=== PATIENT | female | born 1980 | race Two or more races ===

== ENCOUNTER 2024-08-12 09:19 | Emergency (ER) | payer OTHER ==
--- NOTE | 2024-08-12 11:29 | RAD REPORT ---
EXAMINATION: CT ABDOMEN AND PELVIS WITH CONTRAST CLINICAL INDICATION: Female, 44 years old.RLQ abd pain, hx of ruptured cysts TECHNIQUE: CT abdomen and pelvis was performed, after the administration of IV contrast, as per [facility] protocol. Axial, sagittal and coronal reconstructions were obtained. One or more of the following dose reduction techniques were used: Automated exposure control, adjustment of the mA and/o r kV according to patient size, and/or iterative reconstruction. Unless otherwise specified, incidental findings do not require dedicated imaging follow-up. [id number]. COMPARISON: 11/15/2016 FINDINGS: LOWER CHEST: No acute process identified.No significant pericardial effusion. Mild circumferential th ickening of the distal esophagus which could reflect esophagitis. UPPER GI: No significant abnormality. LIVER: No significant focal abnormality. GALLBLADDER/BILE DUCTS: No biliary ductal dilatation.? PANCREAS: No mass, ductal dilation, or jono-pancreatic fluid. SPLEEN: Unremarkable. ADRENALS: No adrenal masses. KIDNEYS AND URETERS: No hydronephrosis.No suspicious renal mass. ABDOMINAL AORTA AND OTHER VESSELS: Normal caliber aorta and IVC. PERITONEUM: No abnormal free fluid. No free air. LYMPH NODES: No pathologic lymphadenopathy. ABDOMINAL WALL: Unremarkable SMALL BOWEL/COLON: Very short segment intussusception present at the jejunum as seen on image 44, ser ies 201. No upstream bowel dilatation.Normal appendix. Mild diverticulosis without diverticulitis. URINARY BLADDER: Underdistended but grossly unremarkable. REPRODUCTIVE ORGANS: No pathologic process. MUSCULOSKELETAL: No acute or suspicious osseous abnormality. ADDITIONAL FINDINGS: None. IMPRESSION: No acute or significant abnormalities seen in the abdomen or pelvis. Very short segment intussuscepti on at the jejunum of doubtful significance, typically a transient finding. No upstream small bowel dilatation. Normal appendix.
[2024-08-12 11:37] LABS: Specific Gravity 1.017 (1.005-1.030); Sqamous Epithelial <5 /HPF (None Seen); Urine Bacteria None Seen /HPF (<20); Urine Bilirubin NEGATIVE (Negative); Urine Blood Negative (Negative); Urine Clarity Extremely Turbid (Clear); Urine Color Light-Orange (Yellow); Urine Culture Reflex Order NOT NEEDED; Urine Glucose NEGATIVE (Negative); Urine Ketones NEGATIVE (Negative); Urine Microscopic Reflex YN ORDER UMIC; Urine Nitrite NEGATIVE (Negative); Urine Protein NEGATIVE (Negative); Urine RBC None Seen /HPF (None Seen); Urine Urobilinogen Normal (Normal); Urine WBC <5 /HPF (<5)
[2024-08-12 11:42] LABS: Albumin/Globulin Ratio 1.1 (1.1-1.8); Bilirubin Total 0.3 mg/dL (0.2-1.0); Globulin 3.6 g/dL (2.3-3.5); Protein, Total 7.6 g/dL (6.4-8.2)
--- NOTE | 2024-08-12 12:09 | ER ---
Nurse's Notes [facility] Name: Jewell Melendrez Age: 44 yrs Sex: Female : 1980 Arrival Date: 08/12/2024 Time: 09:19 Bed 23 Private MD: Diagnosis: Abdominal pain, unspecified;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 Presentation: 08/12 09:53 Chief complaint: Patient states: Stabbing RLQ pain, radiates to to back, nausea, ate jl7 breakfast, last time this happened it was a ruptured cyst. Coronavirus screen: At this time, the client does not indicate any symptoms associated with coronavirus-19. Ebola Screen: No symptoms or risks identified at this time. Initial Sepsis Screen: Does the patient meet any 2 criteria? No. Patient's initial sepsis screen is negative. Does the patient have a suspected source of infection? No. Patient's initial sepsis screen is negative. Risk Assessment: Do you want to hurt yourself or someone else? Patient reports no desire to harm self or others. 09:53 Method Of Arrival: Ambulatory [facility] 09:53 Acuity: AIDA 3 jl7 Triage Assessment: 09:56 General: Appears in no apparent distress. uncomfortable, Behavior is calm, cooperative, jl7 appropriate for age. Pain: Complains of pain in right lower quadrant Pain currently is 3 out of 10 on a pain scale. GI: Reports lower abdominal pain, nausea. 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 - Infectious Disease History:: Denies. - Social history:: Smoking status: Patient/guardian denies using tobacco, the patient reports quitting approximately 13 years ago. - Family history:: not pertinent. - Hospitalizations: : No recent hospitalization is reported. Vital Signs: 09:53 BP 144 / 80; Pulse 85; Resp 17; Pulse Ox 98% ; jl7 09:59 Temp 97.7; Weight 74.84 kg; Height 5 ft. 8 in. ; jl7 09:59 Body Mass Index 25.09 (74.84 kg, 172.72 cm) ED Course: 09:22 Patient arrived in ED. al6 09:29 Lestre Wade MD is Attending Physician. rn 09:56 Triage completed. 09:56 Arm band placed on right wrist. 10:19 Mario Narayanan, RN is Primary Nurse. bp 10:31 Initial lab(s) drawn, by la, sent to lab. Urine collected: clean catch specimen, bp cloudy. Inserted saline lock: 20 gauge in right forearm, using aseptic technique. Blood collected. Flushed with 10 mL NS. 10:56 CT Abd/Pelvis - IV Contrast Only In Process Unspecified. EDMS Administered Medications: No medications were administered Outcome: 12:08 Discharge ordered by . rn 12:19 Patient left the ED. bp Signatures: Dispatcher [employer] EDMS Lester Wade MD MD rn Leal, Jahala, RN RN jl7 Mario Narayanan, BALTAZAR RN Grecia Nguyen al Corrections: (The following items were deleted from the chart) 09:57 09:56 PSHx: Total abdominal hysterectomy;
--- NOTE | 2024-08-12 12:09 | EDPHYS ---
Physician Documentation [facility] Name: Jewell Melendrez Age: 44 yrs Sex: Female : 1980 Arrival Date: 08/12/2024 Time: 09:19 Bed 23 Private MD: ED Physician Lester Wade HPI: 08/12 12:58 This 44 yrs old [place] Female presents to ER via Ambulatory with complaints of rn Abdominal Pain. 12:58 The patient presents with abdominal pain right lower quadrant. rn 12:59 Onset: The symptoms/episode began/occurred this morning. The symptoms radiate to right rn back. Associated signs and symptoms: Pertinent positives: nausea, Pertinent negatives: blood in stools, chest pain, constipation, diarrhea, dysuria, fever, hematuria, vaginal discharge. The symptoms are described as sharp, stabbing. Modifying factors: The symptoms are alleviated by nothing, the symptoms are aggravated by movement, touching the area. Severity of pain: At its worst the pain was moderate in the emergency department the pain has improved. The patient has experienced a previous episode. Patient reports right lower quadrant abdominal pain that began this morning. Feels sharp and stabbing. Worse with movement and standing straight up. Feels identical to when had a ovarian cyst rupture in the past. Denies trauma. No fever or chills. Reports nausea. Has a good appetite and ate breakfast this morning. Still went to her hair appointment but pain did not go away so came in for evaluation. Has a trip coming up this weekend so wanted to make sure that she did not have appendicitis or something more serious.. 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 - Infectious Disease History:: Denies. - Social history:: Smoking status: Patient/guardian denies using tobacco, the patient reports quitting approximately 13 years ago. - Family history:: not pertinent. - Hospitalizations: : No recent hospitalization is reported. ROS: 12:59 Constitutional: Negative for fever, chills, and weight loss, Cardiovascular: Negative rn for chest pain, palpitations, and edema, Respiratory: Negative for shortness of breath, cough, wheezing, and pleuritic chest pain, Abdomen/GI: Positive for right lower quadrant abdominal pain and nausea Back: Negative for injury and pain, : Negative for injury, bleeding, discharge, and swelling, MS/Extremity: Negative for injury and deformity, Neuro: Negative for headache, weakness, numbness, tingling, and seizure, Exam: 12:59 Constitutional: This is a well developed, well nourished patient who is awake, alert, rn and in no acute distress. Cardiovascular: Regular rate and rhythm. No pulse deficits. Respiratory: No increased work of breathing, no retractions or nasal flaring. Abdomen/GI: Soft, right lower quadrant tenderness without guarding or rebound. No peritoneal signs. No distention. Vital Signs: 09:53 BP 144 / 80; Pulse 85; Resp 17; Pulse Ox 98% ; 7 09:59 Temp 97.7; Weight 74.84 kg; Height 5 ft. 8 in. ; 7 09:59 Body Mass Index 25.09 (74.84 kg, 172.72 cm) [facility] MDM: 09:29 Medical Screening Exam initiated rn 12:59 Differential diagnosis: appendicitis, diverticulitis, gastroesophageal reflux disease, rn non-specific abd pain, pancreatitis, Peptic Ulcer Disease, Perf. Duodenal Ulcer, Perf. Gastric Ulcer, Pyelonephritis, Ureterolithiasis, urinary tract infection, Ovarian cyst. Data reviewed: vital signs, nurses notes, lab test result(s), radiologic studies, CT scan, and as a result, I will discharge patient. Counseling: I had a detailed discussion with the patient and/or guardian regarding the historical points, exam findings, and any diagnostic results supporting the discharge/admit diagnosis, lab results, radiology results, the need for outpatient follow up, to return to the emergency department if symptoms worsen or persist or if there are any questions or concerns that arise at home. Special discussion: I discussed with the patient/guardian in detail that at this point there is no indication for admission to the hospital. It is understood, however, that if the symptoms persist or worsen the patient needs to return immediately for re-evaluation. 13:02 ED course: CT negative for appendicitis or evidence of ruptured ovarian cyst. CT does rn show very small segment of intussusception, likely transient and not of clinical significance but could indicate secondary inflammation or infection leading to the intussusception. Especially given that patient is leaving out of town, will place on antibiotics and given as needed nausea medication prescriptions. I have personally reviewed all of the results, including but not limited to blood tests and imaging deemed necessary to safely discharge this patient at this time. All results given to and printed out for patient. I personally went over all the results with the patient and answered all questions. Patient will follow-up with PCP and or specialist as discussed. Return precautions given and understood.. 08/12 09:57 Order name: CMP; Complete Time: 11:48 rn 08/12 09:57 Order name: Urinalysis w/ reflexes; Complete Time: 11:48 rn 08/12 09:57 Order name: CT Abd/Pelvis - IV Contrast Only; Complete Time: 11:48 rn 08/12 09:57 Order name: IV Saline Lock; Complete Time: 10:31 rn 08/12 09:57 Order name: Labs collected and sent; Complete Time: : rn 08/12 10:47 Order name: Labs - recollect needed: recollect green and lavender top; Complete Time: bd 11:06 Administered Medications: No medications were administered Disposition Summary: 08/12/24 12:08 Discharge Ordered Notes: Location: Home rn Problem: new rn Symptoms: have improved rn Condition: Stable rn Diagnosis - Abdominal pain, unspecified rn - 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 rn Followup: rn - With: Private Physician - When: As needed - Reason: Recheck today's complaints, Re-evaluation by your physician Discharge Instructions: - Discharge Summary Sheet rn - Abdominal Pain, Adult rn - 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, ornamenter Forms: - Medication Reconciliation Form rn - 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 - Prescription Opioid Use rn - Patient Portal Instructions rn - Leadership Thank You Letter rn Prescriptions: - ondansetron 4 mg Oral Tablet,disintegrating - take 1 tablet ORAL route every 8 hours As needed; 12 tablet; Refills: 0, rn Product Selection Permitted - Bactrim DS 800-160 mg Oral Tablet - take 1 tablet ORAL route every 12 hours for 10 days; 20 tablet; Refills: 0, rn Product Selection Permitted Signatures: Dispatcher [employer] EDMS Anyi Banerjee Roman, MD MD rn Leal, Jahala, RN RN jl7 Corrections: (The following items were deleted from the chart) 09:57 09:56 PSHx: Total abdominal hysterectomy; jl7 jl7 12:16 11:34 Labs - recollect needed ordered. bd bp
[2024-08-12 21:47] VITALS: BP 144/80; O2SAT 98
[2024-08-12 21:48] VITALS: TEMP 97.7
== END 2024-08-12 12:19 | disposition home or self-care (01) ==
LOC: ER 09:19
DX: K56.1 Intussusception (principal)
CPT/HCPCS: 81001; 36415; 80053; 74177; Q9967